=== PATIENT | male | born 2000 | race Two or more races ===

== ENCOUNTER 2019-03-01 22:28 | Emergency (ER) | payer BC ==
[~2019-03-01] VITALS: Ht 172.7 cm; Wt 81.6 kg
[2019-03-01] MEDS ORDERED: NITROGLYCERIN SUBLINGUAL 0.4 MG BOTTLE OF 25. SL PRN (23:00)
[2019-03-01] MEDS ORDERED: IPRATRPIUM/ALBUTEROL 0.5/2.5MG 3 ML NEBU. NEB ONE (23:00)
[2019-03-01] MEDS ORDERED: MORPHINE SULFATE 2 MG/ML VIAL. IV/SQ PRN (23:00)
--- NOTE | 2019-03-01 23:50 | RAD ---
PA and lateral chest x-ray HISTORY: Chest pain. FINDINGS: Heart size normal. Mediastinal silhouette is normal. No pneumothorax, pulmonary opacities or pleural effusions. Bones are unremarkable. IMPRESSION: Normal exam. Electronically signed by: Delbert Estrada MD (03/01/2019 11:47 PM) [facility]
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
[2019-03-02 00:49] LABS: BASO # 0.1 x10^3/uL (0.0-0.2); BASO % 1 % (0-3); EOS # 0.1 x10^3/uL (0.0-0.7); EOS % 1 % (0-3); HEMATOCRIT 43.8 % (39.0-53.0); HEMOGLOBIN 14.9 g/dL (13.0-17.5); LYMPH # 4.5 x10^3/uL (1.0-4.8); LYMPH % 41 % (24-48); MEAN CORPUSCULAR HEMOGLOBIN 29 pg (25-35); MEAN CORPUSCULAR HGB CONC 34 g/dL (31-37); MEAN CORPUSCULAR VOLUME 86 fL (79-100); MONO # 0.6 x10^3/uL (0.0-1.1); MONO % 6 % (0-9); NEUT # 5.6 x10^3/uL (1.8-7.7); NEUT % 52 % (31-73); PLATELET COUNT 286 x10^3/uL (140-400); RED BLOOD COUNT 5.12 x10^6/uL (4.30-5.70); RED CELL DISTRIBUTION WIDTH 13.2 % (11.5-14.5); WHITE BLOOD COUNT 10.9 x10^3/uL (4.0-11.0)
[2019-03-02] MEDS ORDERED: ASPIRIN 325 MG TABLET PO ONE (01:00)
[2019-03-02] MEDS ORDERED: methylPREDNISolone SOD SUCC PF 125 MG/2 ML VIAL. IV ONE (01:00)
[2019-03-02 01:05] LABS: CALCIUM 9.1 mg/dL (8.5-10.1); CREATININE 0.9 mg/dL (0.7-1.3); GFR 107.6; MAGNESIUM 1.8 mg/dL (1.8-2.4); POTASSIUM 3.5 mmol/L (3.5-5.1)
[2019-03-02 01:09] LABS: BARBITURATES NEG (NEG); BENZODIAZEPINES NEG (NEG); CANNABINOIDS POS (NEG); COCAINE NEG (NEG); METHADONE NEG (NEG); OPIATES NEG (NEG); PHENCYCLIDINE NEG (NEG)
[2019-03-02 01:13] LABS: AMPHETAMINE/METHAMPHETAMINE NEG (NEG)
[2019-03-02] MEDS ORDERED: DICL50TA4 PO (01:41)
[2019-03-02 01:43] VITALS: BP 130/76
--- NOTE | 2019-03-02 05:47 | EKG ---
[facility] [address] [place] [address] Test Date: 2019-03-01 Test Time: 22:52:29 Pat Name: WANDA GONGORA Department: Room: Gender: M [employer]: : 2000 Requested By: ROBYN CARRENO Order Number: [id number] Reading MD: Measurements Intervals [place] Rate: 55 P: 38 MO: 160 QRS: 52 QRSD: 88 T: 42 QT: 376 QTc: 362 Interpretive Statements SINUS RHYTHM OTHERWISE NORMAL ECG RI6.01 No previous ECG available for comparison
== END 2019-03-02 01:57 | disposition home or self-care (01) ==
LOC: ER 22:28
DX: R09.1 Pleurisy (principal)
CPT/HCPCS: 36415; 71046; 80048; 80307; 82553; 83735; 83880; 84484; 85025; 85379; 93005; 94640; 96374; 96375; 99285; J2270; J2930; J7620

== ENCOUNTER 2020-06-12 05:22 | Emergency (ER) | payer OTHER, BC ==
[~2020-06-12] VITALS: Ht 172.7 cm; Wt 81.8 kg
[~2020-06-12 05:22] MED LIST: DICL50TA4 PO
[2020-06-12] MEDS ORDERED: IBUPROFEN 400 MG TABLET. PO ONE (05:30)
[2020-06-12 05:42] LABS: BASO # 0.1 x10^3/uL (0.0-0.2); BASO % 1 % (0-3); EOS # 0.1 x10^3/uL (0.0-0.7); EOS % 0 % (0-3); HEMATOCRIT 45.1 % (39.0-53.0); HEMOGLOBIN 15.2 g/dL (13.0-17.5); LYMPH # 5.2 x10^3/uL (1.0-4.8); LYMPH % 36 % (24-48); MEAN CORPUSCULAR HEMOGLOBIN 29 pg (25-35); MEAN CORPUSCULAR HGB CONC 34 g/dL (31-37); MEAN CORPUSCULAR VOLUME 87 fL (79-100); MONO # 0.8 x10^3/uL (0.0-1.1); MONO % 6 % (0-9); NEUT # 8.3 x10^3/uL (1.8-7.7); NEUT % 57 % (31-73); PLATELET COUNT 363 x10^3/uL (140-400); RED BLOOD COUNT 5.19 x10^6/uL (4.30-5.70); RED CELL DISTRIBUTION WIDTH 13.3 % (11.5-14.5); WHITE BLOOD COUNT 14.4 x10^3/uL (4.0-11.0)
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
[2020-06-12 05:49] LABS: CREATININE 0.9 mg/dL (0.7-1.3); GFR 106.5; POTASSIUM 3.9 mmol/L (3.5-5.1)
[2020-06-12 05:54] LABS: PROTHROMBIN TIME PATIENT 14.7 SEC (11.7-14.0)
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
[2020-06-12 07:43] VITALS: BP 135/72
[2020-06-12 08:24] LABS: BILIRUBIN,URINE NEGATIVE (NEG); CLARITY,URINE CLEAR; COLOR,URINE YELLOW; NITRITE,URINE NEGATIVE (NEG); PH,URINE 5.5 (<5.0-8.0); PROTEIN,URINE NEGATIVE (NEG-TRACE); UROBILINOGEN,URINE 0.2 mg/dL (0.2 mg/dL)
[2020-06-12 08:32] LABS: BARBITURATES NEG (NEG); BENZODIAZEPINES NEG (NEG); CANNABINOIDS POS (NEG); COCAINE NEG (NEG); METHADONE NEG (NEG); OPIATES NEG (NEG); PHENCYCLIDINE NEG (NEG)
[2020-06-12 08:36] LABS: AMPHETAMINE/METHAMPHETAMINE NEG (NEG); BACTERIA,URINE 0 /HPF (0-FEW); RBC,URINE 0 /HPF (0-2)
== END 2020-06-12 07:56 | disposition home or self-care (01) ==
LOC: ER 05:22
DX: S06.0X0A Concussion without loss of consciousness, initial encounter (principal); S80.01XA Contusion of right knee, initial encounter; M25.551 Pain in right hip; R51.9 Headache, unspecified; F17.200 Nicotine dependence, unspecified, uncomplicated; F12.90 Cannabis use, unspecified, uncomplicated; V89.2XXA Person injured in unspecified motor-vehicle accident, traffic, initial encounter; Y93.89 Activity, other specified; Y92.413 State road as the place of occurrence of the external cause; Y99.8 Other external cause status
CPT/HCPCS: 36415; 70450; 71045; 72040; 73502; 73562; 80048; 80307; 81001; 85025; 85610; 85730; 86850; 86900; 86901; 99285; G0480

== ENCOUNTER 2020-10-14 01:07 | Emergency (ER) | payer BC, OTHER ==
[~2020-10-14] VITALS: Ht 170.2 cm; Wt 114.1 kg
[2020-10-14] MEDS ORDERED: diphenhydrAMINE 50 MG/ML VIAL IM ONE ×2 (01:30→02:00)
[2020-10-14] MEDS ORDERED: OLANZapine IM 10 MG VIAL. IM ONE (01:30)
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
[2020-10-14 02:48] LABS: BARBITURATES NEG (NEG); BENZODIAZEPINES NEG (NEG); CANNABINOIDS POS (NEG); COCAINE NEG (NEG); METHADONE NEG (NEG); OPIATES NEG (NEG); PHENCYCLIDINE NEG (NEG)
[2020-10-14 02:49] LABS: AMPHETAMINE/METHAMPHETAMINE NEG (NEG)
[2020-10-14 03:07] LABS: BASO % 0 % (0-3); EOS # 0.1 x10^3/uL (0.0-0.7); EOS % 1 % (0-3); HEMATOCRIT 44.3 % (39.0-53.0); LYMPH # 7.4 x10^3/uL (1.0-4.8); LYMPH % 54 % (24-48); MEAN CORPUSCULAR HEMOGLOBIN 29 pg (25-35); MEAN CORPUSCULAR HGB CONC 34 g/dL (31-37); MEAN CORPUSCULAR VOLUME 86 fL (79-100); MONO # 0.5 x10^3/uL (0.0-1.1); MONO % 4 % (0-9); NEUT # 5.7 x10^3/uL (1.8-7.7); NEUT % 41 % (31-73); PLATELET COUNT 393 x10^3/uL (140-400); RED BLOOD COUNT 5.13 x10^6/uL (4.30-5.70); RED CELL DISTRIBUTION WIDTH 13.4 % (11.5-14.5); WHITE BLOOD COUNT 13.8 x10^3/uL (4.0-11.0)
[2020-10-14 03:30] LABS: CALCIUM 8.5 mg/dL (8.5-10.1); CREATININE 1.1 mg/dL (0.7-1.3); GFR 83.7; POTASSIUM 3.3 mmol/L (3.5-5.1)
[2020-10-14 03:37] LABS: ALBUMIN 4.2 g/dL (3.4-5.0); ALBUMIN/GLOBULIN RATIO 1.1 (1.0-1.7); TOTAL BILIRUBIN 0.3 mg/dL (0.2-1.0); TOTAL PROTEIN 8.1 g/dL (6.4-8.2)
[2020-10-14 05:55] LABS: % ATYL 22 % (0-0); % BANDS 3 % (0-9); % LYMPHS 45 % (24-48); % MONOS 1 % (0-10); % SEGS 29 % (35-66)
[2020-10-14 05:56] LABS: PLT ESTIMATE ADEQUATE (ADEQUATE)
[2020-10-14] MEDS ORDERED: DIPH,PERTUSS(ACELL),TET VAC/PF 0.5 ML SYRINGE. VAX IM ONE (14:00)
--- NOTE | 2020-10-14 14:17 | RAD ---
Indications: Bruising. Abrasion of anterior price. 2 view study of the left forearm: No acute fracture or dislocation or lytic process is seen. Degenera tive cyst of the distal scaphoid bone is seen. No left elbow joint effusion is seen. No radiopaque fo reign body is evident. 2 view study of the right forearm: No acute fracture or dislocation or lytic process is seen. No righ t elbow joint effusion is seen. No radiopaque foreign body is seen. Two-view study of the right tibia and fibula: No acute fracture or dislocation or lytic process or pe riosteal reaction is evident. No radiopaque foreign body is evident. IMPRESSION: No acute osseous abnormality. Electronically signed by: Lebron Hatch MD (10/14/2020 2:15 PM) [id number]
[2020-10-14] MEDS ORDERED: CONTRAST GIVEN. MC PRN (14:45)
[2020-10-14] MEDS ORDERED: IOHEXOL 300 MG/ML 100ML VIAL. IV ONE (14:45)
[2020-10-14] MEDS ORDERED: BENZOCAINE/MENTHOL LOZENGE. PO ONE (16:15)
--- NOTE | 2020-10-14 16:38 | RAD ---
CT Head W/O Contrast: History: Reason: ams / Spl. Instructions: / History: Comparison: none Axial images were obtained without contrast. The kaplan and white matter appears normal and symmetrical for the patients age. There is no mass effe ct, extraaxial fluid collections or hydrocephalus. There is no gross bleed. There is no focal loss of kaplan-white matter distinction to suggest acute ischemia, i.e. stroke. Impression: No acute findings. End impression CT maxillofacial without contrast History: sinus infection Axial helical images of the face were obtained without contrast. Axial and coronal reconstruction was performed. The nasal septum is moderately deviated to the left. The ostiomeatal complexes are narrow but patent. The paranasal sinuses are clear. The visualized osseous structures appear intact. The orbits appear normal. Impression: No acute findings. End impression CT C-Spine without contrast: Clinical History: Reason: ams / Spl. Instructions: / History: Technique: Axial helical images of the cervical spine were obtained without contrast, axial coronal and sagittal reconstruction was performed. Findings: There is no loss of vertebral body stature. There is no prevertebral soft tissue swelling. The vert ebral bodies are well aligned. The C1-C2 relationship is normal. The visualized osseous structures a ppear normal. Impression: No acute findings. Clinical correlation suggested. PQRS Compliance Statement: One or more of the following individualized dose reduction techniques were utilized for this examinat ion: 1. Automated exposure control 2. Adjustment of the mA and/or kV according to patient size 3. Use of iterative reconstruction technique Electronically signed by: Gregg Ford III, MD (10/14/2020 4:36 PM) [facility]
--- NOTE | 2020-10-14 16:45 | RAD ---
STUDY: 1. CT chest with contrast 2. CT abdomen/pelvis with contrast 3. CT thoracic spine without contrast 4. CT lumbar spine without contrast INDICATION: Agitated delirium. COMPARISON: None. TECHNIQUE: Helical CT imaging of the chest, abdomen and pelvis performed after the intravenous admini stration of 75 cc Omnipaque 300 contrast. Coronal and sagittal reformats were obtained. The data obta ined from the initial acquisition was utilized to reconstruct smaller [id number] sequences through the thoracic and lumbar spine. One or more of the following individualized dose reduction techniques were utilized for this examinat ion: 1. Automated exposure control 2. Adjustment of the mA and/or kV according to patient size 3. Use of iterative reconstruction technique. FINDINGS: CT CHEST: Patent visualized great vessels. No aortic aneurysm or dissection. Within normal limits main pulmonar y artery caliber at 2.9 cm. Unremarkable mediastinal contents noting some residual thymic tissue. No focal airspace abnormality, pleural effusion or pneumothorax. Patent central airways. Unremarkable body wall soft tissues. No displaced rib fracture. The partially imaged shoulder girdles are intact. Thoracic spine detailed separately. CT ABDOMEN/PELVIS: Unremarkable liver, gallbladder, biliary tree, pancreas, spleen, adrenal glands, kidneys, urinary bashir dder and prostate. Unremarkable colon, appendix, small bowel and stomach. Normal aortic caliber. Patent central portal veins and superior mesenteric vein. No lymphadenopathy. No free fluid or pneumoperitoneum. Unremarkable body wall soft tissues. Symmetric muscular bulk. Right slightly more so than left sacroi liitis. No ankylosis or presacral inflammation. No acute fracture seen throughout the pelvis. Lumbar spine findings detailed separately. CT THORACIC SPINE: No acute fracture. Maintained vertebral body height and alignment. Intact posterior elements. No evid ence for central canal or neural foraminal stenosis. CT LUMBAR SPINE: No acute fracture or traumatic malalignment. Maintained vertebral body height and alignment. Intact p osterior elements. No osseous central canal or neural foraminal stenosis. IMPRESSION: CT CHEST: 1. No acute abnormality. CT ABDOMEN/PELVIS: 1. No acute abnormality. CT THORACIC SPINE: 1. No fracture or malalignment. CT LUMBAR SPINE: 1. No fracture or malalignment. Electronically signed by: MINO UP MD (10/14/2020 4:43 PM) [id number]
[2020-10-14 17:30] VITALS: BP 127/62
== END 2020-10-14 17:48 | disposition home or self-care (01) ==
LOC: ER 01:07
DX: F10.229 Alcohol dependence with intoxication, unspecified (principal); Y90.8 Blood alcohol level of 240 mg/100 ml or more; R45.1 Restlessness and agitation; S80.12XA Contusion of left lower leg, initial encounter; S80.11XA Contusion of right lower leg, initial encounter; X58.XXXA Exposure to other specified factors, initial encounter; Y93.89 Activity, other specified; Y92.89 Other specified places as the place of occurrence of the external cause; Y99.8 Other external cause status
CPT/HCPCS: 36415; 70450; 70486; 71260; 72125; 73090; 73590; 74177; 80053; 80307; 82550; 85007; 85025; 96372; 99285; G0480; J1200; J2060; J3490; Q9967